=== PATIENT | female | born 1970 | race Hispanic/Latino ===

== ENCOUNTER 2020-03-11 06:51 | Emergency (ER) | payer SELFPAY ==
[~2020-03-11] VITALS: Ht 160 cm; Wt 64.1 kg
[~2020-03-11 06:51] MED LIST: AMPICILLIN500 MG PO; CIPROFLOXACIN500 M1 PO; CLARITHROMYC500 M2 PO; EQ OMEPRAZOLE20 MG PO; FIORICET PO; MEDDOSEPAK PO; METRONIDAZOL500 MG PO; OMEPRAZOLE20 MG PO; PERCOCET 10/31 COMBO PO; ZOFRAN8 MG PO
[2020-03-11 07:52] LABS: HEMATOCRIT 34.8 % (37.0-47.0); IMMATURE GRANULOCYTES 0.4 % (0.0-5.0); MEAN CELL VOLUME 86.8 fL CALC (80.0-100.0); MEAN CORPUSCULAR HGB 27.4 pG CALC (26.0-32.0); MEAN CORPUSCULAR HGB CONC 31.6 g/dL CAL (32.0-36.0); NEUT# 7.29 thou/uL (2.00-7.15); RED BLOOD COUNT 4.01 mill/uL (4.20-5.60); RED CELL DISTRI WIDTH 13.4 % (11.5-15.5)
[2020-03-11 07:52] LABS: URINE BILIRUBIN - DIPSTICK NEGATIVE (NEGATIVE); URINE BLOOD DIPSTICK NEGATIVE (NEGATIVE); URINE COLOR YELLOW; URINE GLUCOSE - DIPSTICK NEGATIVE (NEGATIVE); URINE KETONE NEGATIVE (NEGATIVE); URINE LEUK ESTERASE NEGATIVE (NEGATIVE); URINE NITRITE - DIPSTICK NEGATIVE (Negative); URINE PROTEIN - DIPSTICK NEGATIVE (NEG-TRACE); URINE UROBILINOGEN - DIPSTICK 0.2 E.U./dL (0.2)
[2020-03-11 08:12] LABS: ALBUMIN 3.8 g/dL (3.2-5.0); ALKALINE PHOSPHATASE 57 u/l (38-126); ANION GAP 13 (6-22 (CALC)); BILIRUBIN, TOTAL 0.3 mg/dL (0.0-1.4); BUN 9 mg/dL (7-17); BUN/CREATININE RATIO 16 (12-20 (CALC)); CARBON DIOXIDE 25 mmol/l (22-30); CHLORIDE 102 mmol/l (95-108); CREATININE 0.6 mg/dL (0.5-1.0); GFR > 60 ML/MIN (>=60 (CALC)); GFR FOR AFR.AMER. > 60 ML/MIN (>=60 (CALC)); POTASSIUM 4.7 mmol/l (3.5-5.1); SGOT/AST 20 u/l (14-36); SODIUM 135 mmol/l (137-146)
[2020-03-11] MEDS ORDERED: MAGNESIUM296 ML/BTL PO (09:48)
[2020-03-11] MEDS ORDERED: MIRALAX17 GM/SCOO MT (09:48)
[2020-03-11] MEDS ORDERED: DULCOLAX5 MG PO (09:48)
[2020-03-11 09:53] VITALS: BP 134/68
[2020-03-11] MEDS ORDERED: DICYCLOMINE10 MG PO (10:00)
== END 2020-03-11 09:54 | disposition home or self-care (01) | DRG 392 ==
LOC: ED 06:51
PROVIDERS: Student in an Organized Health Care Education/Training Program
DX: K59.00 Constipation, unspecified (principal); K76.0 Fatty (change of) liver, not elsewhere classified; F17.210 Nicotine dependence, cigarettes, uncomplicated
CPT/HCPCS: Q9967

== ENCOUNTER 2024-01-29 05:52 | Emergency (ER) | payer SELFPAY ==
[~2024-01-29] VITALS: Ht 160 cm; Wt 67.0 kg
[2024-01-29] VITALS (13 sets, daily range): BP systolic 132–149; BP diastolic 74–87
[~2024-01-29 05:52] MED LIST changes: +DICYCLOMINE10 MG PO; +DULCOLAX5 MG PO; +MAGNESIUM296 ML/BTL PO; +MIRALAX17 GM/SCOO MT; +PREDNISONE50 MG PO; +ZPAK PO
[2024-01-29] MEDS ORDERED: ASPIRIN 81 MG/TAB PO ONE (06:15)
[2024-01-29] MEDS ORDERED: ALBUTEROL SULFATE 8 GM INH IN ONE (06:15)
[2024-01-29] MEDS ORDERED: IBUPROFEN 600 MG/TAB PO ONE (06:15)
[2024-01-29] MEDS ORDERED: ACETAMINOPHEN 500 MG TAB PO ONE (06:15)
[2024-01-29 06:21] LABS: BASO% 0.5 % (0-3); EOS% 1.7 % (0-8); HEMATOCRIT 32.6 % (37.0-47.0); HEMOGLOBIN 10.4 g/dl (12.0-16.0); IMMATURE GRANULOCYTES 0.2 % (0.0-5.0); LYMPH% 26.1 % (15-41); MEAN CELL VOLUME 81.3 fL CALC (80.0-100.0); MEAN CORPUSCULAR HGB 25.9 pG CALC (26.0-32.0); MEAN CORPUSCULAR HGB CONC 31.9 g/dL CAL (32.0-36.0); MONO% 7.4 % (2-13); NEUT# 5.16 thou/uL (2.00-7.15); NEUT% 64.1 % (42-76); RED BLOOD COUNT 4.01 mill/uL (4.20-5.60); RED CELL DISTRI WIDTH 16.1 % (11.5-15.5)
[2024-01-29 06:53] LABS: ALBUMIN 4.3 g/dL (3.2-5.0); ALKALINE PHOSPHATASE 39 u/l (38-126); ANION GAP 11 (6-22 (CALC)); BUN 8 mg/dL (7-17); BUN/CREATININE RATIO 14 (12-20 (CALC)); CARBON DIOXIDE 23 mmol/l (22-30); CHLORIDE 109 mmol/l (95-108); CREATININE 0.6 mg/dL (0.5-1.0); ESTIMATED GFR 108 ML/MIN (>=90 (CALC)); POTASSIUM 4.1 mmol/l (3.5-5.1); SODIUM 138 mmol/l (137-146); TOTAL PROTEIN 8.1 g/dL (6.3-8.2)
[2024-01-29 06:55] LABS: ACT PARTIAL THROMBO TIME 26.1 SECONDS (20.0-32.5)
[2024-01-29 06:58] LABS: D-DIMER 0.4 mg/L (0.19-0.60)
[2024-01-29 07:01] LABS: PROTHROMBIN TIME 9.9 SECONDS (9.0-12.5)
[2024-01-29 07:03] LABS: URINE BILIRUBIN - DIPSTICK Negative (NEGATIVE); URINE BLOOD DIPSTICK Trace-intact (NEGATIVE); URINE GLUCOSE - DIPSTICK Negative (NEGATIVE); URINE KETONE Negative (NEGATIVE); URINE LEUK ESTERASE Negative (NEGATIVE); URINE NITRITE - DIPSTICK Negative (Negative); URINE PROTEIN - DIPSTICK Negative (NEG-TRACE); URINE SPECIFIC GRAVITY 1.025; URINE UROBILINOGEN - DIPSTICK 0.2 E.U./dL (0.2)
[2024-01-29 07:07] LABS: URINE COLOR Yellow
[2024-01-29 07:14] LABS: BILIRUBIN, TOTAL 0.8 mg/dL (0.02-1.3); SGOT/AST 58 u/l (14-36)
== END 2024-01-29 09:05 | disposition home or self-care (01) | DRG 153 ==
LOC: ED 05:52
PROVIDERS: Family Medicine
DX: J06.9 Acute upper respiratory infection, unspecified (principal); J45.909 Unspecified asthma, uncomplicated; F17.200 Nicotine dependence, unspecified, uncomplicated; T48.6X6A Underdosing of antiasthmatics, initial encounter; Z91.128 Patient's intentional underdosing of medication regimen for other reason; Z20.822 Contact with and (suspected) exposure to COVID-19

== ENCOUNTER 2024-02-06 16:40 | Emergency (ER) | payer SELFPAY ==
[2024-02-06] VITALS (7 sets, daily range): BP systolic 121–132; BP diastolic 64–78
[~2024-02-06] VITALS: Ht 160 cm; Wt 68.0 kg
[2024-02-06] MEDS ORDERED: IPRATROPIUM-Albuterol 0.5MG-2.5MG/3 ML NEB ONE (16:50)
[2024-02-06] MEDS ORDERED: guaiFENesin-CODEINE 200-20 MG/10 ML UDC PO ONE (16:50)
[2024-02-06] MEDS ORDERED: DEXAMETHASONE SOD. PHOSPHATE 10 MG/ML VIAL IM ONE (16:50)
[2024-02-06] MEDS ORDERED: PREDNISONE20 MG PO (18:51)
[2024-02-06] MEDS ORDERED: VIBRAMYCIN100 M2 PO (18:51)
[2024-02-06] MEDS ORDERED: LEVOCETIRIZINE D5 MG PO (18:51)
== END 2024-02-06 19:40 | disposition home or self-care (01) | DRG 153 ==
LOC: ED 16:40
DX: J06.9 Acute upper respiratory infection, unspecified (principal); J45.909 Unspecified asthma, uncomplicated; F17.200 Nicotine dependence, unspecified, uncomplicated; Z20.822 Contact with and (suspected) exposure to COVID-19